=== PATIENT | female | born 1950 | race Caucasian/White ===

== ENCOUNTER → 2018-05-24 | Outpatient (CLI) | payer MEDICARE ==
[~2018-05-24] MED LIST: ALPR-475 PO; AMLO10TA6 PO; LEVO112T4 PO; OLME40TA12 PO; OMEP-110 PO; PREG100C PO; ZOLP10TA PO
== END | disposition home or self-care (01) ==
LOC: CFH 07:11
PROVIDERS: ATTEND Family Medicine
DX: Z12.31 Encounter for screening mammogram for malignant neoplasm of breast (principal); Z85.3 Personal history of malignant neoplasm of breast
CPT/HCPCS: 77067